=== PATIENT | male | born 1985 | race Caucasian/White ===

== ENCOUNTER 2025-01-28 20:09 | Emergency (ER) | payer OTHER ==
[~2025-01-28] VITALS: Ht 190.5 cm; Wt 90.9 kg
[2025-01-28 20:33] VITALS: BP 119/81; PULSE 71; RESP 18; TEMP 97.5; O2SAT 99
[2025-01-28] MEDS ORDERED: HYDR-4062 PO (22:49)
[2025-01-28] MEDS ORDERED: AMOX500C2 PO (22:49)
[2025-01-28] MEDS ORDERED: IBUP-1493 PO (22:49)
[2025-01-28] MEDS: IBUPROFEN 800 MG TABLET PO ONE (23:17)
[2025-01-28] MEDS: AMOXICILLIN TRIHYDRATE 250 MG CAPSULE PO ONE (23:17)
== END 2025-01-28 23:28 | disposition home or self-care (01) ==
LOC: EMS 20:09
DX: K08.89 Other specified disorders of teeth and supporting structures (principal)
CPT/HCPCS: 99284; Z7502; Z7610